=== PATIENT | male | born 1985 | race Hispanic/Latino ===

== ENCOUNTER → 2017-12-13 | Outpatient (CLI) | payer BC | LOC: YCFC.O 09:27 → LAB.O 09:27 | PROVIDERS: ATTEND Nurse Practitioner Family | DX: R05 Cough (principal) ==

== ENCOUNTER → 2018-04-30 | Outpatient (CLI) | payer BC ==
[~2018-04-30] MED LIST: ALBUTEROL SULFATE 2.5 MG/3 ML VIAL NEB ONE
--- NOTE | 2018-04-30 10:34 | CT ---
EXAM DESCRIPTION: Chest w/Contrast CLINICAL HISTORY: 33 years, Male, BRONCHITIS COMPARISON: Chest x-ray two views December 12, 2017 TECHNIQUE: Thin-section noncontrast axial CT images are obtained according to our protocol. Reconstructed MPR images are created and reviewed as well. FINDINGS: Lungs: No consolidating pulmonary infiltrate or groundglass infiltrate. No worrisome pulmonary mass. No bronchiectasis. Small subpleural granuloma in the left upper lobe is an incidental finding of 2 mm. Tiny granuloma in the lingula 2 mm. Tiny granuloma in the right lower lobe above the dome of the diaphragm. This measures 3 mm. These do not require follow-up in an asymptomatic young patient, nonsmoker. See below. Mediastinum: Lymph nodes are normal in size. Normal vascular contours with normal enhancement of the aorta and pulmonary arteries and cardiac chambers. Heart size is normal with no pericardial effusion. Chest wall/axilla: No mass or adenopathy. Lower neck/supraclavicular: No mass or adenopathy. Upper abdomen: Unremarkable upper abdominal viscera. Small accessory splenule is incidentally noted. IMPRESSION: Three tiny pulmonary granulomas. Otherwise no diagnostic abnormality is identified on CT examination of the chest. 2017 Fleischner Society Recommendations for Multiple Solid Lung Nodules Follow-Up base on size (average of long- and short-axis diameters). Use most suspicious nodule for followup. Nodule Size <6 mm Low-Risk Patient: No routine follow-up Nodule Size <6 mm High-Risk Patient: Optional CT at 12 months This exam was performed according to our departmental dose-optimization program, which includes automated exposure control, adjustment of the mA and/or kV according to patient size and/or use of iterative reconstruction technique. Total DLP equals 539.67 mGycm. Electronically signed by: Raul South MD 04/30/2018 10:32 AM CDT
== END ==
LOC: CT 09:23
PROVIDERS: ATTEND Nurse Practitioner Family
DX: J40 Bronchitis, not specified as acute or chronic (principal)

== ENCOUNTER → 2018-07-03 | Outpatient (CLI) | payer BC | LOC: LAB.O 05-27 15:30 | PROVIDERS: ATTEND Internal Medicine | DX: J45.909 Unspecified asthma, uncomplicated (principal); J30.9 Allergic rhinitis, unspecified; R05 Cough ==